=== PATIENT | female | born 1985 | race Two or more races ===

== ENCOUNTER 2017-10-09 16:56 | Emergency (ER) | payer MEDICAID, SELFPAY ==
[~2017-10-09] VITALS: Ht 170.2 cm; Wt 71.8 kg
[2017-10-09 16:57] VITALS: BP 136/90
[2017-10-09] MEDS ORDERED: HYDROcodone/APAP 5/325 TABLET PO ONE (17:30)
[2017-10-09] MEDS ORDERED: ONDANSETRON ODT 4 MG PO ONE (17:30)
[2017-10-09] MEDS ORDERED: LIDOCAINE 1%, 20ML SQ ONE (17:30)
== END 2017-10-09 18:02 | disposition home or self-care (01) ==
LOC: ED 17:57
DX: L02.414 Cutaneous abscess of left upper limb (principal)
CPT/HCPCS: 10060; 93005; 99283; Q0162

== ENCOUNTER 2021-07-06 17:22 | Emergency (ER) | payer MEDICAID ==
[~2021-07-06] VITALS: Ht 170.2 cm; Wt 72.7 kg
[2021-07-06 18:41] LABS: BASOPHILS % (AUTO) 1 % (0-1); EOSINOPHILS % (AUTO) 1 % (1-7); LYMPHOCYTES % (AUTO) 30 % (22-44); MEAN CORPUSCULAR HEMOGLOBIN 28.7 pg (27.0-34.8); MEAN CORPUSCULAR HGB CONC 32.3 g/dL (32.4-35.8); MEAN PLATELET VOLUME 6.8 fL (7.4-10.4); MONOCYTES % (AUTO) 9 % (2-9); NEUTROPHILS % (AUTO) 59 % (42-75); PLATELET COUNT 332 x10^3/uL (130-400); RED BLOOD COUNT 4.72 x10^6/uL (3.82-5.3); RED CELL DISTRIBUTION WIDTH 14.6 % (9.6-15.2)
[2021-07-06 18:56] LABS: ALBUMIN 3.8 g/dL (3.4-5.0); ANION GAP 5 mmol/L (5-15); CALCIUM 8.3 mg/dL (8.5-10.1); CHLORIDE 110 mmol/L (98-107)
[2021-07-06 19:02] LABS: CREATININE 0.76 mg/dL (0.55-1.02)
[2021-07-06 22:52] VITALS: BP 151/94
[2021-07-06] MEDS ORDERED: HYDROcodone/APAP 5/325 TABLET ONE (22:53)
[2021-07-06] MEDS ORDERED: CEFTRIAXONE 1,000 MG ONE (22:56)
[2021-07-06] MEDS ORDERED: LIDOCAINE-MPF 1%, 2ML ONE (22:56)
[2021-07-06] MEDS ORDERED: DOXYCYCLINE 100MG TABLET ONE (22:56)
[2021-07-06] MEDS ORDERED: DOXYCYCLINE 100MG TABLET PO ONE (23:00)
[2021-07-06] MEDS ORDERED: CEFTRIAXONE 1,000 MG IM ONE (23:00)
--- NOTE | 2021-07-06 23:52 | NUR ---
PATIENT ELOPED FROM THE ER. ISABEL ORDONEZ MADE AWARE.
== END 2021-07-06 23:55 | disposition left against medical advice (07) ==
LOC: ED 17:27
DX: N93.9 Abnormal uterine and vaginal bleeding, unspecified (principal); R10.30 Lower abdominal pain, unspecified
CPT/HCPCS: 36415; 76830; 80048; 82040; 84703; 85025; 96372; 99284; J0696